=== PATIENT | male | born 2000 | race Two or more races ===

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

== ENCOUNTER 2020-10-22 09:36 | Emergency (ER) | payer MEDICAID, OTHER ==
[~2020-10-22] VITALS: Ht 175.3 cm; Wt 75.0 kg
[2020-10-22] MEDS ORDERED: BACITRACIN ZINC OINT UDPKT TOP ONE (10:15)
[2020-10-22] MEDS ORDERED: LIDOCAINE HCL/PF 1% 10 MG/ML 5ML VIAL IJ ONE (10:15)
[2020-10-22] MEDS ORDERED: ACETAMINOPHEN 325MG TABLET PO ONE (10:15)
[2020-10-22] MEDS ORDERED: IBUPROFEN 400MG TABLET PO ONE (10:15)
[2020-10-22] MEDS ORDERED: TETANUS, DIPHTHERIA, PERTUSSIS VAC/PF 0.5ML (>7YR OLD) IM ONE (10:15)
[2020-10-22 11:42] VITALS: BP 130/84
== END 2020-10-22 11:42 | disposition home or self-care (01) ==
LOC: ER 09:36
DX: S61.219A Laceration without foreign body of unspecified finger without damage to nail, initial encounter (principal); W26.0XXA Contact with knife, initial encounter; Y93.89 Activity, other specified; Y92.9 Unspecified place or not applicable
CPT/HCPCS: 12001; 90471; 90715; 99284; J3490; Z7610